=== PATIENT | male | born 1960 | race Hispanic/Latino ===

== ENCOUNTER 2018-07-23 07:41 | Emergency (ER) | payer MEDICARE, BC ==
[~2018-07-23] VITALS: Ht 172.7 cm; Wt 83.9 kg
[~2018-07-23 07:41] MED LIST: ASPIRIN81 MG PO; BYSTOLIC2.5 MG; CRESTOR10 MG PO; METOPROLOL TART25 MG PO; NIFEDIPINE ER30 MG PO
[2018-07-23] MEDS ORDERED: ONDANSETRON HCL INJ 2 MG/ML VIAL IV STA (07:57)
--- NOTE | 2018-07-23 08:11 | Diagnostic Imaging Report ---
EXAMINATION: Head CT HISTORY: Left-sided weakness, evaluate for stroke COMPARISON: None available TECHNIQUE: Multidetector axial images were obtained without contrast from the foramen magnum to the vertex . The images were reconstructed using brain and bone algorithms. Thin section brain images were reformatted into coronal and sagittal planes. Image quality: Motion/streaking artifact limits the evaluation of the skull base and posterior cranial fossa. Dose modulation, iterative reconstruction, and/or weight based adjustment of the mA/kV was utilized to reduce the radiation dose to as low as reasonably achievable. FINDINGS: Parenchyma: 1. Approximately 7 cm AP x 3.9 cm transverse diameter acute large hematoma in the right lateral temporal occipital/inferior parietal lobes, with surrounding vasogenic edema and mild local mass effect, there is approximately 7 mm midline shift to the left and partial effacement of the right lateral ventricle. 2. Small likely chronic lacunar infarct in the right thalamocapsular region. 3. Scattered and mildly confluent periventricular white matter hypodensities, most likely nonspecific chronic microvascular ischemic changes 4. No mass or hemorrhage. No CT evidence of acute territorial vascular insult. Extra-axial spaces:No abnormal density. No extra-axial fluid collections Brain volume: Normal for age. Ventricles: No hydrocephalus Arteries: No density suggestive of thrombus. Dural sinuses: No abnormal density. Extra-axial spaces: No abnormal density. Foramen magnum: No mass, Chiari malformation, or basilar invagination. Sella: No obvious mass. Paranasal/mastoid sinuses: Imaged portions unremarkable. Skull/Scalp: Postoperative changes in the right petrous/mastoid temporal bone with cochlear implant in adequately position, the cochlear implant which usually prevents patient from having MRI. IMPRESSION: 1. Large right lateral temporo-occipital intraparenchymal hemorrhage with approximately 7 mm midline shift to the left. Even though possibly hypertensive etiology, the location is unusual, a CTA of the head is recommended for further evaluation. 2. Mild chronic microvascular ischemic changes. 3. Right cochlear implant as detailed above. The findings were discussed with the ER physician Dr. Flanagan at 7:59 AM. Signed by: Dr. Geno Fernandez M.D. on 07/23/2018 8:06 AM
[2018-07-23] MEDS ORDERED: ROCURONIUM BROMIDE 1 ML ONE (08:16)
[2018-07-23] MEDS ORDERED: SODIUM CHLORIDE 0.9% 1000ML 1,000 ML ONE (08:16)
[2018-07-23 08:18] LABS: BASOPHILS % 0.2 % (0.0-1.0); HEMATOCRIT 33.5 % (38.2-49.6); LYMPHOCYTES # (AUTO) 0.4 (1.0-3.2); MEAN CORPUSCULAR HEMOGLOBIN 32.8 pg (28-32); MEAN CORPUSCULAR HGB CONC 32.8 g/dL (31-35); MONOCYTES # (AUTO) 0.2 (0.2-0.8); MONOCYTES % 1.5 % (4.4-11.3); NEUTROPHILS # (AUTO) 11.4 (2.1-6.9); NEUTROPHILS % 94.9 % (38.7-80.0); PLATELET COUNT 282 x10e3/uL (140-360); RED BLOOD COUNT 3.35 x10e6/uL (4.3-5.7); RED CELL DISTRIBUTION WIDTH 17.6 % (11.7-14.4)
[2018-07-23] MEDS ORDERED: ROCURONIUM BROMIDE 10 MG/ML 5ML VIAL IV ONE ×2 (08:20→10:30)
[2018-07-23] MEDS ORDERED: PROPOFOL IV EMULSION 10MG/ML 100 ML ONE (08:25)
[2018-07-23 08:26] LABS: INR 1.05; PROTHROMBIN TIME 14.6 seconds (11.9-14.5)
[2018-07-23 08:27] LABS: PARTIAL THROMBOPLASTIN TIME 30.1 seconds (23.8-35.5)
[2018-07-23] MEDS ORDERED: NICARDIPINE 20MG/200ML PREMIX 200 ML ONE (08:40)
[2018-07-23 08:45] LABS: CREATINE KINASE MB 2.1 ng/mL (0-5.0)
--- NOTE | 2018-07-23 08:52 | Diagnostic Imaging Report ---
PROCEDURE: CHEST SINGLE (PORTABLE) COMPARISON: None. INDICATIONS: POSSIBLE STROKE, INTUBATION FINDINGS: Endotracheal tube tip projects approximately 5 cm above the stas. Enteric tube tip projects over the expected region of the gastric fundus. Right internal jugular tunneled hemodialysis catheter tip projects over the high right atrium. Lungs are well-inflated and without focal consolidation, pleural effusion, or pneumothorax. 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 No pulmonary edema. No acute osseous abnormality. CONCLUSION: Tip of endotracheal tube projects approximately 5 cm above the stas. Enteric tube and tunneled hemodialysis catheter positioned as above. Clear lungs. Postsurgical sequela of the mediastinum. Dictated by: Jamie Maravilla M.D. on 07/23/2018 at 9:00 Electronically approved by: Jamie Maravilla M.D. on 07/23/2018 at 9:00
[2018-07-23] MEDS ORDERED: NICARDIPINE HCL SOLN 25 MG in SODIUM CHLORIDE 0.9% 250ML 240 ML IV PRN (09:00)
[2018-07-23] MEDS ORDERED: PROPOFOL IV EMULSION 10 MG/ML 50 ML VIAL IV PRN (09:00)
[2018-07-23 09:06] LABS: ALBUMIN 4.2 g/dL (3.5-5.0); ANION GAP 29.6 mmol/L (8-16); CALCIUM 9.3 mg/dL (8.4-10.2); CREATININE, SERUM 15.52 mg/dL (0.72-1.25); MAGNESIUM 2.6 MG/DL (1.3-2.1)
[2018-07-23 09:11] LABS: POTASSIUM 6.6 mmol/L (3.5-5.1)
[2018-07-23 09:15] LABS: ABG HCO3 29 mmol/L (23-28); ABG PCO2 42 mmHg (41-51); ABG PH 7.44 (7.31-7.41); ABG PO2 417 mmHg (80-105)
[2018-07-23] MEDS ORDERED: DEXTROSE 50% SYRINGE 50 ML IV PRN (09:15)
[2018-07-23] MEDS ORDERED: CALCIUM CHLORIDE 13.6 MEQ in SODIUM CHLORIDE 0.9% 100 ML 100 ML IV ONE (09:15)
[2018-07-23] MEDS ORDERED: SODIUM BICARBONATE 8.4% INJ 50 ML SYR IV STA (09:15)
[2018-07-23] MEDS ORDERED: INSULIN REGULAR, HUMAN 100 UNIT/1 ML 3ML VIAL IV ONE (09:15)
[2018-07-23] MEDS ORDERED: SODIUM BICARBONATE 8.4% SYRING 50 ML ONE (09:20)
[2018-07-23] MEDS ORDERED: DEXTROSE 50% SYRINGE 50 ML IV ONE (09:20)
[2018-07-23] MEDS ORDERED: INSULIN REGULAR, HUMAN 100 UNIT/1 ML 3ML VIAL ONE (09:20)
[2018-07-23] MEDS ORDERED: SODIUM CHLORIDE 0.9% 50ML 50 ML ONE (09:32)
[2018-07-23] MEDS ORDERED: ETOMIDATE 2 MG/ML 10 ML INJ IV ONE (10:30)
[2018-07-23] MEDS ORDERED: ETOMIDATE 40 MG/ 20ML VIAL IV ONE (17:50)
[2018-07-23] MEDS ORDERED: VECURONIUM BROMIDE FOR INJ 20 MG VIAL ONE (17:50)
[2018-07-24] MEDS ORDERED: CALCIUM GLUCONATE 10% INJ 4.65 MEQ in SODIUM CHLORIDE 0.9% 50ML 50 ML IV ONE (09:35)
== END 2018-07-23 09:58 | disposition other institution (70) ==
LOC: ER 07:41
DX: R53.1 Weakness (principal); I61.9 Nontraumatic intracerebral hemorrhage, unspecified; J96.01 Acute respiratory failure with hypoxia; I10 Essential (primary) hypertension; E87.5 Hyperkalemia
CPT/HCPCS: 31500; 31720; 36415; 70450; 71045; 80053; 82550; 82553; 82805; 83735; 84484; 85025; 85610; 85730; 93005; 94002; 99285; J2405; J7030; J7799; 36600

== ENCOUNTER → 2023-02-28 | Day surgery (SDC) | payer BC, MEDICARE ==
[~2023-02-28] MED LIST changes: +ACETAMINOPHEN 1000 MG/100 ML 100 ML IV ONE; +DEXAMETHASONE SOD PHOS INJ 4 MG/ML SDV ONE; +FENTANYL CITRATE/PF 100MCG/2 ML INJ ONE; +HYDROCODONE/APAP 7.5MG-325MG 1 EA TAB ONE; +HYDROCODONE/APAP 7.5MG-325MG 1 EA TAB PO ONE; +LACTATED RINGER'S 1,000 ML ONE; +LIDOCAINE HCL 2% LOCAL INJ 5 ML SDV VIAL INJ ONE; +MEPERIDINE HCL INJ 25 MG/ML VIAL ONE; +MIDAZOLAM HCL 2 MG/2 ML VIAL ONE; +ONDANSETRON HCL INJ 2MG/ML 2ML 2 MG/ML VIAL ONE; +POVIDONE IODINE 0.05% 0.05 % ML PO ONE; +PROPOFOL IV EMULSION 10 MG/ML 20 ML VIAL ONE; +SEVOFLURANE INHAL SOLN 250 ML PEN BTL ONE; +[UNRECOGNIZED DRUG - OTHER] PO
[2023-02-28 11:37] LABS: BASOPHILS # (AUTO) 0.1 (0.0-0.1); BASOPHILS % 0.6 % (0.0-1.0); EOSINOPHILS # (AUTO) 0.1 (0.0-0.4); EOSINOPHILS % 0.4 % (0.0-6.0); HEMATOCRIT 39.7 % (38.2-49.6); HEMOGLOBIN 13.1 g/dL (14.0-18.0); LYMPHOCYTES # (AUTO) 1.4 (1.0-3.2); LYMPHOCYTES % 8.4 % (18.0-39.1); MEAN CORPUSCULAR HEMOGLOBIN 30.5 pg (28-32); MEAN CORPUSCULAR VOLUME 92.3 fL (81-99); MONOCYTES # (AUTO) 0.8 (0.2-0.8); MONOCYTES % 5.2 % (4.4-11.3); NEUTROPHILS # (AUTO) 13.6 (2.1-6.9); PLATELET COUNT 285 x10e3/uL (140-360); RED CELL DISTRIBUTION WIDTH 14.1 % (11.7-14.4)
[2023-02-28 11:57] LABS: ALBUMIN 3.3 g/dL (3.5-5.0); ALBUMIN/GLOBULIN RATIO 0.9 (0.8-2.0); ANION GAP 13.7 mmol/L (8-16); CALCIUM 9.7 mg/dL (8.4-10.2); CREATININE, SERUM 1.6 mg/dL (0.72-1.25); POTASSIUM 4.7 mmol/L (3.5-5.1)
[2023-02-28 15:10] VITALS: BP 147/82
== END | disposition home or self-care (01) ==
LOC: OR 10:40
PROVIDERS: ATTEND Surgery
DX: L02.31 Cutaneous abscess of buttock (principal); I10 Essential (primary) hypertension; E11.9 Type 2 diabetes mellitus without complications; Z79.899 Other long term (current) drug therapy; Z94.0 Kidney transplant status
CPT/HCPCS: 10060; 36415; 71046; 80053; 85025; 87071; 87075; 87186; 87205; 93005; J0131; J1100; J2001; J2175; J2250; J2405; J2704; J3010; J7121